=== PATIENT | female | born 1985 | race Caucasian/White ===

== ENCOUNTER 2016-06-16 23:49 | Emergency (ER) | payer OTHER ==
[~2016-06-16] VITALS: Ht 177.8 cm; Wt 72.6 kg
[2016-06-17 00:18] VITALS: BP 113/77
[2016-06-17] MEDS ORDERED: IBUPROFEN 600600 M1 PO (00:20)
[2016-06-17] MEDS ORDERED: CLEOCIN HCL300 MG PO (00:20)
[2016-06-17] MEDS ORDERED: NOHOMEMEDICATIONS (00:23)
== END 2016-06-17 00:37 | disposition home or self-care (01) ==
LOC: ER 23:49
DX: S51.851A Open bite of right forearm, initial encounter (principal); Z88.0 Allergy status to penicillin; W57.XXXA Bitten or stung by nonvenomous insect and other nonvenomous arthropods, initial encounter; Y93.89 Activity, other specified; Y92.89 Other specified places as the place of occurrence of the external cause; Y99.8 Other external cause status

== ENCOUNTER 2016-08-01 12:11 | Emergency (ER) | payer OTHER ==
[~2016-08-01] VITALS: Ht 177.8 cm; Wt 74.8 kg
[~2016-08-01 12:11] MED LIST: CLEOCIN HCL300 MG PO; IBUPROFEN 600600 M1 PO; NOHOMEMEDICATIONS
[2016-08-01 12:58] LABS: ABSOLUTE NEUTROPHILS 4.7 thou/uL (1.4-8.2); BASOPHILS 0.2 % (0.0-2.0); EOSINOPHILS 1.1 % (0.0-3.0); HEMATOCRIT 43.3 % (37.0-47.0); HEMOGLOBIN 14.6 gm/dL (12.0-15.0); MCH 33.8 pg (26.0-34.0); MCHC 33.8 g/dL (28.0-37.0); MCV 99.9 fL (80.0-100.0); MONOCYTES 4.9 % (1.0-8.0); POLYS 80.8 % (36.0-66.0); RBC 4.33 mil/uL (4.20-5.00); RDW 13.3 % (10.5-14.5); WBC 5.8 thou/uL (4.0-11.0)
[2016-08-01 12:59] LABS: MANUAL DIFF NO
[2016-08-01 13:25] LABS: PLATELET COUNT 146 thou/uL (150-400)
[2016-08-01 13:26] LABS: LARGE PLATELETS RARE
[2016-08-01 15:32] VITALS: BP 120/82
[2016-08-02 19:09] LABS: CHLAMYDIA TRACHOMATIS-PCR Negative (Negative); NEISSERIA GONORRHEA-PCR Negative (Negative)
== END 2016-08-01 15:33 | disposition home or self-care (01) ==
LOC: ER 12:11
PROVIDERS: Nurse Practitioner Family
DX: N93.8 Other specified abnormal uterine and vaginal bleeding (principal); F17.210 Nicotine dependence, cigarettes, uncomplicated; Z88.0 Allergy status to penicillin

== ENCOUNTER 2016-11-24 20:44 | Emergency (ER) | payer OTHER ==
[~2016-11-24] VITALS: Ht 177.8 cm; Wt 67.6 kg
[2016-11-24] MEDS ORDERED: [UNRECOGNIZED DRUG - REMARK] (21:06)
[2016-11-24] MEDS ORDERED: NORCO 5-325 TA1 EACH PO (22:20)
[2016-11-24] MEDS ORDERED: IBUPROFEN 600600 M1 PO (22:20)
[2016-11-24] MEDS ORDERED: BACTRIM DS TAB1 EACH PO (22:20)
[2016-11-24 23:10] VITALS: BP 138/91
== END 2016-11-24 23:10 | disposition home or self-care (01) ==
LOC: ER 20:44
DX: L02.413 Cutaneous abscess of right upper limb (principal); F17.210 Nicotine dependence, cigarettes, uncomplicated; F10.99 Alcohol use, unspecified with unspecified alcohol-induced disorder; Z88.0 Allergy status to penicillin